=== PATIENT | male | born 1990 | race African-American/Black ===

== ENCOUNTER 2022-03-23 09:17 | Emergency (ER) | payer SELFPAY ==
[~2022-03-23] VITALS: Ht 180.3 cm; Wt 90.9 kg
[2022-03-23 09:20] VITALS: TEMP 99.4
[2022-03-23 09:59] VITALS: BP 147/101; PULSE 103
== END 2022-03-23 09:59 | disposition home or self-care (01) ==
LOC: COL.ER 09:17
DX: F41.9 Anxiety disorder, unspecified (principal); Z28.310 Unvaccinated for COVID-19

== ENCOUNTER 2022-03-23 22:03 | Emergency (ER) | payer SELFPAY ==
[2022-03-23 23:33] LABS: BASO # 0.1 K/mm3 (0.0-0.2); BASO % 0.5 % (0.0-2.0); EOS % 0.1 % (0.0-4.0); GRAN # 6.4 K/mm3 (1.4-6.5); GRAN % 68.3 % (42.2-75.2); HEMATOCRIT 41.9 % (42.0-52.0); HEMOGLOBIN 14.1 g/dl (13.5-18.0); LYMPH % 21.1 % (20.0-51.0); MEAN CELL VOLUME 81 fl (80.0-100.0); MEAN CORPUSCULAR HEMOGLOBIN 27 pg (27-31); MEAN CORPUSCULAR HGB CONC 34 g/dl (33.0-37.0); MONO # 0.9 K/mm3 (0.1-0.6); MONO % 9.9 % (1.7-9.3); PLATELET COUNT 294 K/mm3 (130-400); RED BLOOD COUNT 5.18 M/mm3 (4.20-5.60); REDCELL DISTRIBUTION WIDTH-CV 13.2 % (11.5-14.5)
[2022-03-23 23:47] LABS: ALANINE AMINOTRANSFERASE 32 U/L (0-55); ALBUMIN 5.1 gm/dL (3.5-5.0); ALKALINE PHOSPHATASE 63 U/L (40-150); ANION GAP 16 mmol/L (7-16); AST,SGOT 31 U/L (5-34); BILIRUBIN,TOTAL 2.2 mg/dL (0.2-1.2); BLOOD UREA NITROGEN 14 mg/dL (9-21); CALCIUM 10.1 mg/dL (8.4-10.2); CARBON DIOXIDE 21 mmol/L (22-29); CHLORIDE 98 mmol/L (98-107); CREATININE, serum 1.63 mg/dL (0.72-1.25); GLUCOSE 111 mg/dL (70-99); POTASSIUM 3.4 mmol/L (3.5-4.5); SODIUM 135 mmol/L (136-145); TOTAL PROTEIN 9.1 gm/dL (6.2-8.1)
[2022-03-23 23:50] LABS: ACETAMINOPHEN < 1.0 ug/mL (10-30); ALCOHOL(ethanol),MEDICAL < 10 mg/dL (0-10); SALICYLATE < 5.0 mg/dL (15.0-30.0)
[2022-03-23 23:52] LABS: COLLECTION METHOD CLEAN CATCH
[2022-03-24 00:03] LABS: AMORPHOUS CRYSTAL Present (NOT PRESENT); MUCOUS Present (NOT PRESENT); PH 5 (5-8); SQUAMOUS EPITHELIAL 0-2 /hpf (0-10); URINE APPEARANCE Turbid (CLEAR/HAZY); URINE BACTERIA Rare /hpf (NONE SEEN); URINE BLOOD Negative (NEGATIVE); URINE COLOR Yellow (YELLOW); URINE GLUCOSE Negative (NEGATIVE); URINE KETONE Trace (NEGATIVE); URINE NITRATE Negative (NEGATIVE); URINE PROTEIN(semi-quant) 2+ (NEGATIVE); URINE RBC 0-2 /hpf (0-2); URINE UROBILINOGEN Negative (NEGATIVE)
[2022-03-24 00:12] LABS: TRICYCLIC ANTIDEPRESS URINE NEGATIVE
[2022-03-24 05:24] VITALS: BP 145/75; PULSE 93; TEMP 97.5
== END 2022-03-24 05:24 | disposition home or self-care (01) ==
LOC: COL.ER 22:03
PROVIDERS: Emergency Medicine Emergency Medical Services
DX: F15.10 Other stimulant abuse, uncomplicated (principal); Z28.310 Unvaccinated for COVID-19